=== PATIENT | female | born 1955 | race African-American/Black ===

== ENCOUNTER 2021-06-11 15:50 | Inpatient (IN) ==
[2021-06-11] MEDS ORDERED: MAGNESIUM SULF RIDER 2 GM/50 ML PREMIX IV PRN (20:19)
[2021-06-11] MEDS ORDERED: GLUCAGON 1 MG VIAL IM PRN (20:19)
[2021-06-11] MEDS ORDERED: ONDANSETRON 4 MG/2 ML VIAL IV PRN (20:19)
[2021-06-11] MEDS ORDERED: MAGNESIUM SULF RIDER 4 GM/100 ML PREMIX IV PRN (20:19)
[2021-06-11] MEDS ORDERED: POTASSIUM CHLORIDE RIDER 10 MEQ/100 ML PREMIX IV PRN (20:24)
[2021-06-11] MEDS ORDERED: hydrALAZINE 20 MG/1 ML VIAL IV PRN (20:25)
[2021-06-11] MEDS ORDERED: DEXTROSE 10% 25 GM/250 ML BAG IV PRN (20:28)
[2021-06-11] MEDS ORDERED: HydrOXYzine PAMOATE 25 MG CAPSULE PO PRN (20:32)
[2021-06-11] MEDS ORDERED: INFLUENZA VIRUS VACCINE 0.5 ML SYRINGE IM ONE (20:34)
[2021-06-11] MEDS: METOPROLOL TARTRATE 25 MG TABLET PO SCH (22:29)
[2021-06-11] MEDS: SODIUM CHLORIDE 0.9% 1,000 ML IV SCH (22:30)
[2021-06-11] MEDS: CHOLESTYRAMINE 4 GM PACK PO SCH (22:30)
[2021-06-11] MEDS: DOCUSATE SODIUM 100 MG CAPSULE PO SCH (22:30)
[2021-06-11] MEDS: INSULIN REGULAR 100 UNIT/ML SUBCUT SCH (22:36)
[2021-06-12 03:47] LABS: Bacteria,Urine Few /HPF (Few); Bilirubin,Urine Moderate mg/dL (Negative); Blood, Urine Large mg/dL (Negative); Glucose,Urine (UA) Negative (Negative); Ketones,Urine Negative (Negative); Mucus,Urine Occasional /LPF (Occasional); Nitrite,Urine Positive (Negative); Protein,Urine 30 MG/DL; RBC,Urine 290 /HPF (0-4); Squamous Epithelial Cell,Urine Occasional /HPF (0-10); Urine Appearance CLOUDY (Clear); Urine Color Amber (Yellow); Urine Specific Gravity 1.011 (1.001-1.035)
[2021-06-12 05:46] LABS: Basophils # 0.1 10*3/uL (0.0-0.2); Basophils % 0.9 % (0.0-0.8); Eosinophils # 0.3 10*3/uL (0.0-0.87); Eosinophils % 4.7 % (0.00-10.9); Hematocrit 30.2 VOL% (35.7-47.0); Hemoglobin 10.9 GM/DL (12.0-16.0); Immature Granulocytes % 0.4 %; Immature Granulocytes Absolute 0.03 #; Lymphocytes # 1.7 10*3/uL (1.4-4.0); Lymphocytes % 25.3 % (21.3-54.2); Mean Corpuscular HGB Conc 36.1 GM/DL (32-36); Mean Corpuscular Volume 88.3 FL (87-102); Mean Platelet Volume 9.2 FL (9.6-12.0); Monocytes % 9.9 % (1.7-12.7); Neutrophils % 58.8 % (38.7-73.9); Platelet Count 310 T/CUMM (130-400); Red Blood Count 3.42 MC/CUMM (3.8-5.5); Red Cell Distribution Width 19.3 % (9.3-17.3); White Blood Count 6.8 T/CUMM (4-12)
[2021-06-12 05:54] LABS: INR 1.1; PT Patient Result 11.8 SECS (10.5-12.0)
[2021-06-12 06:18] LABS: Albumin 2.5 G/DL (3.4-5.0); Bilirubin,Direct 16.52 MG/DL (0.0-0.20); Total Protein 6.4 G/DL (6.4-8.2)
[2021-06-12 06:20] LABS: Bilirubin,Total 19.5 MG/DL (0.20-1.00)
[2021-06-12 06:23] LABS: Calcium 9.1 MG/DL (8.5-10.1); Osmolality,Calculated 273.1 MOS/KG (273-304); Risk Ratio 41.5; VLDL Cholesterol 80.2 MG/DL
[2021-06-12] MEDS: DOCUSATE SODIUM 100 MG CAPSULE PO SCH ×2 (10:02→20:44)
[2021-06-12] MEDS: METOPROLOL TARTRATE 25 MG TABLET PO SCH ×2 (10:02→20:44)
[2021-06-12] MEDS: PANTOPRAZOLE 40 MG TABLET PO SCH (10:02)
[2021-06-12] MEDS: INSULIN REGULAR 100 UNIT/ML SUBCUT SCH ×4 (10:02→20:44)
[2021-06-12] MEDS: CHOLESTYRAMINE 4 GM PACK PO SCH ×2 (10:03→21:23)
[2021-06-12] MEDS ORDERED: POTASSIUM CHLORIDE 20 MEQ TABLET PO ONE (10:30)
[2021-06-12] MEDS ORDERED: diphenhydrAMINE 50 MG/1 ML VIAL IM PRN (15:09)
[2021-06-12] MEDS: SODIUM CHLORIDE 0.9% 1,000 ML IV SCH (17:21)
[2021-06-12] MEDS: diphenhydrAMINE CAP 25 MG CAPSULE PO PRN (20:44)
[2021-06-13 05:28] LABS: Basophils # 0.1 10*3/uL (0.0-0.2); Basophils % 1.3 % (0.0-0.8); Eosinophils # 0.4 10*3/uL (0.0-0.87); Eosinophils % 6.4 % (0.00-10.9); Hematocrit 27.4 VOL% (35.7-47.0); Hemoglobin 9.6 GM/DL (12.0-16.0); Immature Granulocytes % 0.7 %; Immature Granulocytes Absolute 0.04 #; Lymphocytes # 1.6 10*3/uL (1.4-4.0); Lymphocytes % 26.5 % (21.3-54.2); Mean Corpuscular Volume 88.1 FL (87-102); Mean Platelet Volume 9.2 FL (9.6-12.0); Monocytes % 11.1 % (1.7-12.7); Platelet Count 296 T/CUMM (130-400); Red Blood Count 3.11 MC/CUMM (3.8-5.5); Red Cell Distribution Width 19.9 % (9.3-17.3); White Blood Count 6.1 T/CUMM (4-12)
[2021-06-13 05:42] LABS: Calcium 8.9 MG/DL (8.5-10.1); Osmolality,Calculated 278.5 MOS/KG (273-304); Potassium 3.8 MMOL/L (3.5-5.1)
[2021-06-13 05:57] LABS: Albumin 2.2 G/DL (3.4-5.0); Bilirubin,Direct 15.63 MG/DL (0.0-0.20); Total Protein 5.2 G/DL (6.4-8.2)
[2021-06-13 05:59] LABS: Bilirubin,Indirect 3.4 MG/DL (0.0-1.0)
[2021-06-13] MEDS: diphenhydrAMINE CAP 25 MG CAPSULE PO PRN (07:01)
[2021-06-13] MEDS: METOPROLOL TARTRATE 25 MG TABLET PO SCH (08:38)
[2021-06-13] MEDS: DOCUSATE SODIUM 100 MG CAPSULE PO SCH (08:38)
[2021-06-13] MEDS: PANTOPRAZOLE 40 MG TABLET PO SCH (08:38)
[2021-06-13] MEDS: INSULIN REGULAR 100 UNIT/ML SUBCUT SCH ×2 (08:41→12:32)
[2021-06-13] MEDS: CHOLESTYRAMINE 4 GM PACK PO SCH ×2 (09:39)
[2021-06-13 11:59] VITALS: BP 120/67
[2021-06-13] MEDS: SODIUM CHLORIDE 0.9% 1,000 ML IV SCH (14:34)
== END 2021-06-13 16:00 | disposition home or self-care (01) | DRG 436 ==
LOC: N.3E 18:43 → INTOOBSV 18:43
PROVIDERS: ADMIT Family Medicine; ATTEND Family Medicine

== ENCOUNTER 2021-07-22 13:12 | Inpatient (IN) ==
[2021-07-22] MEDS ORDERED: EPINEPHrine 1 MG/10 ML SYRINGE IV ONE (14:15)
[2021-07-22] MEDS ORDERED: SODIUM BICARBONATE 50 MEQ/50 ML SYRINGE IV ONE (14:25)
[2021-07-22] MEDS ORDERED: SODIUM CHLORIDE 0.9% 1,000 ML IV STA ×2 (14:41→14:49)
[2021-07-22] MEDS ORDERED: NOREPINEPHRINE 4 MG/4 ML VIAL IV ONE (14:47)
[2021-07-22] MEDS ORDERED: NOREPINEPHRINE 8 MG in SODIUM CHLORIDE 0.9% 242 ML IV PRN (14:55)
[2021-07-22 14:56] LABS: Basophils # 0.1 10*3/uL (0.0-0.2); Basophils % 0.8 % (0.0-0.8); Eosinophils % 0.2 % (0.00-10.9); Hemoglobin 10.1 GM/DL (12.0-16.0); Immature Granulocytes % 4.9 %; Immature Granulocytes Absolute 0.42 #; Lymphocytes # 3.1 10*3/uL (1.4-4.0); Lymphocytes % 36.6 % (21.3-54.2); Mean Corpuscular HGB Conc 30.6 GM/DL (32-36); Mean Corpuscular Volume 101.5 FL (87-102); Mean Platelet Volume 9.9 FL (9.6-12.0); Monocytes % 6.8 % (1.7-12.7); Neutrophils % 50.7 % (38.7-73.9); Platelet Count 262 T/CUMM (130-400); Red Blood Count 3.25 MC/CUMM (3.8-5.5); White Blood Count 8.5 T/CUMM (4-12)
[2021-07-22 14:57] LABS: ABG Base Excess -16.8 MMOL/L (-2.5-2.5); ABG HCO3 11.3 MMOL/L (20-26); ABG Oxygen Saturation 62.1 % (95-100); ABG PH 7.035 (7.35-7.45); ABG PO2 53.3 MM HG (80-95); ABG TCO2 13.5 MMOL/L (23-27)
[2021-07-22 15:00] VITALS: BP 94/54
[2021-07-22 15:07] LABS: Calcium 8.6 MG/DL (8.5-10.1); Osmolality,Calculated 281.1 MOS/KG (273-304); Potassium 5.6 MMOL/L (3.5-5.1)
[2021-07-22 15:19] LABS: Albumin 2.2 G/DL (3.4-5.0); Bilirubin,Direct 0.98 MG/DL (0.0-0.20); Bilirubin,Indirect 0.9 MG/DL (0.0-1.0); Bilirubin,Total 1.9 MG/DL (0.20-1.00); Total Protein 6.6 G/DL (6.4-8.2)
[2021-07-22 15:56] LABS: Band Neutrophils 22 % (0-10); Eosinophils 1 % (0-10); Lymphocytes 45 % (20-55); Metamyelocytes 16 %; Myelocytes 2 %; Segmented Neutrophils 10 % (50-85); Total Cells Counted 100
[2021-07-22] MEDS ORDERED: LORazepam 2 MG/1 ML VIAL ONE ×3 (15:57→18:28)
[2021-07-22 15:58] LABS: Anisocytosis Slight; Atypical Lymphocytes Few; Burr Cells Slight; Hypochromia 1+; Macrocytosis Slight; Microcytosis Slight; Platelet Estimate Normal; Poikilocytosis Slight; Polychromasia 1+
[2021-07-22] MEDS ORDERED: SODIUM BICARBONATE 50 MEQ/50 ML VIAL IV ONE ×2 (16:40→20:07)
[2021-07-22] MEDS ORDERED: ALBUTEROL 2.5 MG/3 ML NEB RESP TX PRN (16:40)
[2021-07-22] MEDS ORDERED: ACETAMINOPHEN 325 MG TABLET PO PRN (16:41)
[2021-07-22] MEDS ORDERED: MIDAZOLAM 100 MG in SODIUM CHLORIDE 0.9% 80 ML IV PRN (16:41)
[2021-07-22] MEDS ORDERED: ONDANSETRON 4 MG/2 ML VIAL IV PRN (16:41)
[2021-07-22] MEDS ORDERED: fentaNYL INJ 1,250 MCG in SODIUM CHLORIDE 0.9% 225 ML IV PRN (16:41)
[2021-07-22] MEDS ORDERED: PIPERACILLIN/TAZOBACTAM 3,375 MG in SODIUM CHLORIDE 0.9% 100 ML IV STA (16:45)
[2021-07-22] MEDS ORDERED: SODIUM BICARBONATE 50 MEQ/50 ML VIAL IV STA (16:45)
[2021-07-22] MEDS ORDERED: GLUCAGON 1 MG VIAL IM PRN (16:47)
[2021-07-22] MEDS ORDERED: PANTOPRAZOLE 40 MG VIAL IV SCH (17:00)
[2021-07-22] MEDS ORDERED: PIPERACILLIN/TAZOBACTAM 3,375 MG in SODIUM CHLORIDE 0.9% 100 ML IV SCH (17:00)
[2021-07-22] MEDS ORDERED: DEXTROSE 10% 250 ML BAG IV PRN (17:01)
[2021-07-22 17:23] LABS: INR 1.7
[2021-07-22] MEDS: NOREPINEPHRINE 8 MG in SODIUM CHLORIDE 0.9% 242 ML IV PRN ×2 (17:27→20:54)
[2021-07-22 17:38] LABS: PT Patient Result 17.8 SECS (10.5-12.0)
[2021-07-22] MEDS: LORazepam 2 MG/1 ML VIAL IV PRN ×2 (17:47→18:31)
[2021-07-22 19:25] LABS: ABG Base Excess -18.8 MMOL/L (-2.5-2.5); ABG HCO3 10.3 MMOL/L (20-26); ABG Oxygen Saturation 85.9 % (95-100); ABG PCO2 49.3 MM HG (35-48); ABG PO2 76.1 MM HG (80-95); ABG TCO2 12.1 MMOL/L (23-27)
[2021-07-22] MEDS: INSULIN REGULAR 100 UNIT/ML SUBCUT SCH (19:27)
[2021-07-22] MEDS: SODIUM BICARB INJ 100 MEQ in STERILE WATER INJ 1,000 ML IV SCH (19:27)
[2021-07-22 19:28] LABS: ABG PH 6.998 (7.35-7.45)
[2021-07-22 19:29] LABS: Bacteria,Urine Occasional /HPF (Few); Hyaline Casts,Urine 5 /LPF (0-3); Mucus,Urine Few /LPF (Occasional); RBC,Urine 27 /HPF (0-4); Squamous Epithelial Cell,Urine Occasional /HPF (0-10)
[2021-07-22 19:30] LABS: Glucose,Urine (UA) Negative (Negative); Ketones,Urine Negative (Negative); Nitrite,Urine Negative (Negative); Protein,Urine >=300 mg/dL (Negative); Urine Appearance Cloudy (Clear); Urine Color Yellow (Yellow); Urine Specific Gravity 1.025 (1.001-1.035); Urine pH 5.5 (4.5-8.0)
[2021-07-22 19:31] LABS: Bilirubin,Urine Negative (Negative); Blood, Urine Large mg/dL (Negative); Urine Urobilinogen 0.2 eU/dL (<2.0)
[2021-07-22] MEDS ORDERED: SODIUM CHLORIDE 0.9% 1,000 ML IV ONE (19:34)
[2021-07-22 19:46] LABS: Calcium 7.5 MG/DL (8.5-10.1); Osmolality,Calculated 293.3 MOS/KG (273-304); Potassium 3.8 MMOL/L (3.5-5.1)
[2021-07-22] MEDS ORDERED: HYDROCORTISONE 100 MG VIAL IV SCH (21:00)
[2021-07-22] MEDS ORDERED: NOREPINEPHRINE 16 MG in SODIUM CHLORIDE 0.9% 234 ML IV PRN (22:00)
[2021-07-22] MEDS ORDERED: VASOPRESSIN 100 UNITS in SODIUM CHLORIDE 0.9% 95 ML IV PRN (23:00)
[2021-07-22 23:08] LABS: ABG Base Excess -16.8 MMOL/L (-2.5-2.5); ABG HCO3 11.6 MMOL/L (20-26); ABG Oxygen Saturation 94.1 % (95-100); ABG PCO2 50.8 MM HG (35-48); ABG PO2 94.6 MM HG (80-95); ABG TCO2 13.4 MMOL/L (23-27)
[2021-07-22 23:09] LABS: ABG PH 7.034 (7.35-7.45)
[2021-07-23] MEDS: INSULIN REGULAR 100 UNIT/ML SUBCUT SCH (00:02)
[2021-07-23] MEDS: SODIUM BICARB INJ 100 MEQ in STERILE WATER INJ 1,000 ML IV SCH ×2 (00:20→03:29)
[2021-07-23] MEDS: PHENYLEPHRINE DRIP 40 MG/250 ML PREMIX IV PRN ×2 (00:47→02:48)
[2021-07-23] MEDS ORDERED: SODIUM BICARBONATE 50 MEQ/50 ML VIAL IV ONE (01:05)
[2021-07-23] MEDS ORDERED: EPINEPHrine 1 MG/ML VIAL ONE ×2 (01:14→03:21)
[2021-07-25] MEDS ORDERED: INFLUENZA VIRUS VACCINE 0.5 ML SYRINGE IM ONE (09:00)
== END 2021-07-23 03:44 | disposition expired | DRG 871 ==
LOC: N.ED 13:12 → N.EDINP 16:40 → N.ICU 17:25
PROVIDERS: ADMIT Family Medicine; ATTEND Family Medicine